=== PATIENT | male | born 1985 | race African-American/Black ===

== ENCOUNTER 2017-07-04 20:58 | Emergency (ER) | payer OTHER ==
[2017-07-04] MEDS: LIDOCAINE WITH 8.4% SOD BICARB 3 ML DISP.SYRIN. IJ (21:29)
[2017-07-04] MEDS: DIPHTH,PERTUSS(ACELL),TET TOX 0.5 ML DISP.SYRIN. VAX IM (21:46)
== END 2017-07-04 22:05 | disposition home or self-care (01) ==
LOC: ER 20:58
DX: S61.210A Laceration without foreign body of right index finger without damage to nail, initial encounter (principal); W26.0XXA Contact with knife, initial encounter; Y93.G1 Activity, food preparation and clean up; Y92.89 Other specified places as the place of occurrence of the external cause; Y99.8 Other external cause status
CPT/HCPCS: 12001; 90471; 90715; 99283-25

== ENCOUNTER → 2020-01-17 | Outpatient (CLI) | payer OTHER ==
[2017-07-04 21:10] VITALS: BP 131/75
--- NOTE | 2020-01-17 12:28 | KCIC ---
AP lateral and oblique views of the right hand with single lateral view of the right third digit. INDICATION: Pain after bowling injury. FINDINGS: No fracture subluxation dislocation. No significant degenerative change or soft tissue swelling. Electronically signed by: John Bojorquez MD (01/17/2020 12:25 PM) [id number]
== END | disposition home or self-care (01) ==
LOC: KCIC 10:18
PROVIDERS: ATTEND Family Medicine
DX: M79.644 Pain in right finger(s) (principal)
CPT/HCPCS: 73130